=== PATIENT | female | born 1940 | race Caucasian/White ===

== ENCOUNTER 2021-03-25 10:31 | Emergency (ER) | payer OTHER ==
[2021-03-25 10:50] VITALS: BP 132/73; PULSE 66; TEMP 98.4; BMI 24.7
[2021-03-25] MEDS ORDERED: ACETAMINOPHEN 500 MG TABLET (FP) PO ONE (12:18)
[2021-03-25] MEDS ORDERED: ACETAMINOPHEN 325 MG TABLET (FP) ONE (12:20)
== END 2021-03-25 12:55 | disposition home or self-care (01) ==
LOC: JERFT 10:31
DX: S09.93XA Unspecified injury of face, initial encounter (principal)
CPT/HCPCS: 99283-25

== ENCOUNTER 2024-03-26 04:12 | Day surgery (SDC) | payer OTHER ==
[2024-03-25 11:16] VITALS: BMI 25.0
[2024-03-26] MEDS ORDERED: PROPOFOL 20 ML ONE (13:22)
[2024-03-26] MEDS: ceFAZolin SODIUM 1 GM VIAL IVPB ONE (13:30)
[2024-03-26] MEDS ORDERED: ceFAZolin SODIUM 1 GM VIAL ONE (13:33)
[2024-03-26] MEDS ORDERED: ONDANSETRON 4 MG/2 ML VIAL ONE (13:33)
[2024-03-26] MEDS ORDERED: DEXAMETHASONE SOD PHOSPHATE 4 MG/1 ML VIAL ONE (13:33)
[2024-03-26] MEDS ORDERED: ONDANSETRON 4 MG/2 ML VIAL IVPUSH PRN (14:19)
[2024-03-26] MEDS: LACTATED RINGERS SOLUTION 1,000 ML IV SCH (14:31)
[2024-03-26] MEDS ORDERED: ACETAMINOPHEN INJECTION 100 ML IVPB ONE (14:32)
[2024-03-26] MEDS: ACETAMINOPHEN 1000 MG/100 ML BAG IVPB ONE (14:33)
[2024-03-26] MEDS ORDERED: MIDAZOLAM HCL 2 MG/2 ML SINGLE DOSE VIAL ONE (15:17)
[2024-03-26 15:36] VITALS: TEMP 97.7
[2024-03-26 16:26] VITALS: BP 116/53; PULSE 58; RESP 18
== END 2024-03-26 16:53 | disposition home or self-care (01) ==
LOC: JASU-SURG 04:12
PROVIDERS: ATTEND Urology
PROC: 0T768DZ Dilation of Right Ureter with Intraluminal Device, Via Natural or Artificial Opening Endoscopic (ICD-10-PCS; 2024-03-26)
PROC: BT1DYZZ Fluoroscopy of Right Kidney, Ureter and Bladder using Other Contrast (ICD-10-PCS; 2024-03-26)
PROC: 0TC08ZZ Extirpation of Matter from Right Kidney, Via Natural or Artificial Opening Endoscopic (ICD-10-PCS; principal; 2024-03-26 12:45)
DX: N20.0 Calculus of kidney (principal)
CPT/HCPCS: 36415; 76000-TC-FY; 82360; 82962; 88300-TC; 94760; C1758; C1769; C2617; J0131